=== PATIENT | female | born 1940 | race Caucasian/White ===

== ENCOUNTER 2017-01-23 10:26 | Emergency (ER) | payer OTHER ==
[~2017-01-23] VITALS: Ht 152.4 cm; Wt 90.7 kg
[~2017-01-23 10:26] MED LIST: NORCO 5/3251 TABLET PO
[2017-01-23 11:21] LABS: ADD MIUA? YES; BILIRUBIN NEGATIVE; BLOOD MODERATE; COLOR YELLOW ((YELLOW)); GLUCOSE (STRIP) >=500; KETONES 5; LEUKOCYTES SMALL; NITRITE NEGATIVE; PROTEIN (STRIP) 30; SPECIFIC GRAVITY 1.024 (1.000-1.030); UROBILINOGEN 0.2 MG/DL (0.2-1.0)
[2017-01-23 11:23] LABS: BACTERIA NONE SEEN /HPF; EPITHELIAL CELLS RARE /HPF; MUCUS TRACE /LPF; RED BLOOD CELLS TNTC /HPF (0-5); WHITE BLOOD CELLS 20-30 /HPF (0-5)
[2017-01-23 12:17] LABS: HEMATOCRIT 39.1 % (36.0-46.0); MCH 31.6 PG (29.0-34.0); MCHC 33.5 G/DL (30.0-36.0); MCV 94.4 FL (83-99); MEAN PLAT.VOLUME 11.7 uM^3 (9.5-12.4); PLATELET COUNT 254 K/uL (156-360); RBC DIS.WIDTH-CV 13.1 % (11.8-14.6); RBC DIS.WIDTH-SD 45.5 % (39-53); RED BLOOD COUNT 4.14 M/uL (3.80-5.20); WHITE BLOOD COUNT 14.1 K/uL (4.1-10.2)
[2017-01-23 12:18] LABS: CHLORIDE 97 mEq/L (99-109); POTASSIUM 4.3 mEq/L (3.7-5.4); SODIUM 136 mEq/L (136-147)
[2017-01-23 12:19] LABS: GLUCOSE 275 mg/dL (70-99)
[2017-01-23 12:21] LABS: ANION GAP 11 MEQ/L (2-14)
[2017-01-23 12:23] LABS: GFR ESTIMATE (CALCULATED) 57 mL/min/
[2017-01-23 12:24] LABS: UREA NITROGEN (BUN) 15 mg/dL (9-23)
[2017-01-23] MEDS ORDERED: KEFLEX500 MG PO (13:49)
[2017-01-23] MEDS ORDERED: TYLENOL WITH C1 EACH PO (13:49)
[2017-01-23] MEDS ORDERED: NORCO 5/3251 TABLET PO (14:59)
[2017-01-23 15:19] VITALS: BP 148/77
== END 2017-01-23 15:20 | disposition home or self-care (01) ==
LOC: EME 10:26
PROVIDERS: Nurse Practitioner Family
DX: S49.92XA Unspecified injury of left shoulder and upper arm, initial encounter (principal); W06.XXXA Fall from bed, initial encounter; N39.0 Urinary tract infection, site not specified; E11.65 Type 2 diabetes mellitus with hyperglycemia; Z79.4 Long term (current) use of insulin
CPT/HCPCS: 71020; 73030; 74176; 80048; 81003; 85027; 87077; 87086; 87186; 99281; 99284